=== PATIENT | male | born 1980 ===

== ENCOUNTER 2021-06-20 13:03 | Emergency (ER) | payer BC ==
[2021-06-20 13:13] VITALS: TEMP 98.1
[2021-06-20 13:44] LABS: Basophils # (A) 0.1 k/uL (0-0.2); Basophils % (A) 1 %; Eosinophils # (A) 0.2 k/uL (0-0.7); Eosinophils % (A) 3 %; HCT 44.4 % (39.0-53.0); HGB 15.3 gm/dL (13.0-17.5); Lymphocytes # (A) 2.3 k/uL (1.0-4.8); Lymphocytes % (A) 32 %; MCHC 34.5 g/dL (31.0-37.0); MCV 81.1 fL (80.0-100.0); Mean Platelet Volume 8.4; Monocytes # (A) 0.4 k/uL (0-1.0); Monocytes % (A) 6 %; Neutrophils % (A) 57 %; Platelet Count 194 k/uL (150-450); RBC 5.48 m/uL (4.30-5.90); WBC 7.1 k/uL (3.8-10.6)
[2021-06-20 13:54] LABS: ALT 20 U/L (4-49); AST 32 U/L (17-59); African American GFR (CKD) >90 (>60 ml/min/1.73 sqM); Albumin 4.5 g/dL (3.5-5.0); Alkaline Phosphatase 84 U/L (38-126); Anion Gap 9 mmol/L; Blood Urea Nitrogen 12 mg/dL (9-20); Calcium 9.7 mg/dL (8.4-10.2); Carbon Dioxide 26 mmol/L (22-30); Chloride 104 mmol/L (98-107); Glucose 105 mg/dL (74-99); Magnesium 1.8 mg/dL (1.6-2.3); Non-African American GFR(CKD) >90 (>60 ml/min/1.73 sqM); Sodium 139 mmol/L (137-145); Total Bilirubin 0.6 mg/dL (0.2-1.3); Total Protein 7.6 g/dL (6.3-8.2)
--- NOTE | 2021-06-20 14:01 | XR ---
EXAMINATION TYPE: XR chest 2V DATE OF EXAM: 06/20/2021 COMPARISON: NONE HISTORY: Chest pain. TECHNIQUE: Frontal and lateral views of the chest are obtained. FINDINGS: Overlying EKG leads. There is no focal air space opacity, pleural effusion, or pneumothorax seen. The cardiac silhouette size is within normal limits. The osseous structures are intact. IMPRESSION: No acute process.
--- NOTE | 2021-06-20 14:11 | ED ---
General Adult HPI - General Chief complaint: Arrhythmia/Palpitations Stated complaint: Dizziness Source: patient Mode of arrival: ambulatory Limitations: no limitations - History of Present Illness Initial comments: Patient is a 41-year-old male, previously healthy presents emergency Department with reported dizziness. 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 States that he was working, went to the bathroom and had a bowel movement. When he went to lean forward to wipe he states that he felt as if the ground was moving beneath him. He became diaphoretic. He was evaluated by Dr. Gutiérrez. They completed an EKG which demonstrated some T-wave inversions. Dr. Gutiérrez did recommend that he come in to the emergency room for cardiac workup which the patient agreed to. He arrives and states that he does feel somewhat improved. Feels as if he can't walk a straight line. Denies room spinning sensation. No syncope. Denies any chest pain or shortness of breath. No previous cardiac history. Denies any lower extremity swelling. No ripping or tearing sensation to his back. No abdominal pain. No palpitations. Denies fevers, chills or cough. No hearing changes. No other alleviating, precipitating or modifying factors - Related Data Home Medications Medication Instructions Recorded Confirmed Loratadine 10 mg PO DAILY PRN 06/20/21 06/20/21 Allergies Allergy/AdvReac Type Severity Reaction Status Date / Time No Known Allergies Allergy Verified 06/20/21 16:19 Review of Systems ROS Statement: Those systems with pertinent positive or pertinent negative responses have been documented in the HPI. ROS Other: All systems not noted in ROS Statement are negative. Past Medical History Past Medical History: No Reported History History of Any Multi-Drug Resistant Organisms: None Reported Past Surgical History: No Surgical Hx Reported Past Psychological History: No Psychological Hx Reported Smoking Status: Never smoker Past Alcohol Use History: Occasional Past Drug Use History: Marijuana General Exam Limitations: no limitations Course Vital Signs 06/20/21 06/20/21 06/20/21 13:10 14:12 15:00 Temperature 98.1 F Pulse Rate 65 67 66 Respiratory 20 16 18 Rate Blood Pressure 132/84 128/81 128/80 O2 Sat by Pulse 99 99 99 Oximetry 06/20/21 06/20/21 16:36 17:54 Temperature 98.1 F Pulse Rate 64 68 Respiratory 17 17 Rate Blood Pressure 124/77 124/89 O2 Sat by Pulse 97 99 Oximetry EKG Findings - EKG Comments: EKG Findings:: EKG demonstrates normal sinus rhythm with a ventricular rate of 68. Irritable 166. QRS 102. QTC of 421. Inverted T-wave in leads 3, aVF, V2, V4 and V5. No acute ST segment elevations Medical Decision Making - Medical Decision Making Upon arrival the patient is placed into room 8. A thorough history and physical exam is performed. Patient was on continuous pulse ox and cardiac monitoring. 12-lead EKG was performed. Patient reports to dizziness sensation and therefore he is given a dose of meclizine. Laboratory studies were conducted. D-dimer high at 0.6. Troponin is negative. Did recommend CT of the patient's brain as well as CT of the chest her elevated d-dimer. CT brain demonstrates no acute cranial process at this time. CT of the chest demonstrates no evidence of pulmonary embolism. The patient is reevaluated. Able to get up and ambulate down the hallway without any difficulty. Reports 2 resolution of his symptoms at this time. I did discuss the diagnosis, differential and treatment options. Patient states that he rather go home at this time. Inform the patient and he needs to [facility] for further cardiac testing to include a stress test and echo. Recommended further workup if symptoms return. Any new or worsening symptoms he needs to come back to the emergency department. Patient understood this and agreed. Patient discharged home in stable condition - Lab Data Result diagrams: 06/20/21 13:21 06/20/21 13:21 Lab Results 06/20/21 06/20/21 06/20/21 Range/Units 13:21 13:21 13:21 WBC 7.1 (3.8-10.6) k/uL RBC 5.48 (4.30-5.90) m/uL Hgb 15.3 (13.0-17.5) gm/dL Hct 44.4 (39.0-53.0) % MCV 81.1 (80.0-100.0) fL MCH 28.0 (25.0-35.0) pg MCHC 34.5 (31.0-37.0) g/dL RDW 13.0 (11.5-15.5) % Plt Count 194 (150-450) k/uL MPV 8.4 Neutrophils % 57 % Lymphocytes % 32 % Monocytes % 6 % Eosinophils % 3 % Basophils % 1 % Neutrophils # 4.0 (1.3-7.7) k/uL Lymphocytes # 2.3 (1.0-4.8) k/uL Monocytes # 0.4 (0-1.0) k/uL Eosinophils # 0.2 (0-0.7) k/uL Basophils # 0.1 (0-0.2) k/uL PT 10.4 (9.0-12.0) sec INR 1.0 (<1.2) APTT 23.9 (22.0-30.0) sec D-Dimer 0.60 H (<0.60) mg/L FEU Sodium 139 (137-145) mmol/L Potassium 4.0 (3.5-5.1) mmol/L Chloride 104 (98-107) mmol/L Carbon Dioxide 26 (22-30) mmol/L Anion Gap 9 mmol/L BUN 12 (9-20) mg/dL Creatinine 1.01 (0.66-1.25) mg/dL Est GFR (CKD-EPI)AfAm >90 (>60 ml/min/1.73 sqM) Est GFR (CKD-EPI)NonAf >90 (>60 ml/min/1.73 sqM) Glucose 105 H (74-99) mg/dL Calcium 9.7 (8.4-10.2) mg/dL Magnesium 1.8 (1.6-2.3) mg/dL Total Bilirubin 0.6 (0.2-1.3) mg/dL AST 32 (17-59) U/L ALT 20 (4-49) U/L Alkaline Phosphatase 84 (38-126) U/L Troponin I (0.000-0.034) ng/mL Total Protein 7.6 (6.3-8.2) g/dL Albumin 4.5 (3.5-5.0) g/dL 06/20/21 Range/Units 13:21 WBC (3.8-10.6) k/uL RBC (4.30-5.90) m/uL Hgb (13.0-17.5) gm/dL Hct (39.0-53.0) % MCV (80.0-100.0) fL MCH (25.0-35.0) pg MCHC (31.0-37.0) g/dL RDW (11.5-15.5) % Plt Count (150-450) k/uL MPV Neutrophils % % Lymphocytes % % Monocytes % % Eosinophils % % Basophils % % Neutrophils # (1.3-7.7) k/uL Lymphocytes # (1.0-4.8) k/uL Monocytes # (0-1.0) k/uL Eosinophils # (0-0.7) k/uL Basophils # (0-0.2) k/uL PT (9.0-12.0) sec INR (<1.2) APTT (22.0-30.0) sec D-Dimer (<0.60) mg/L FEU Sodium (137-145) mmol/L Potassium (3.5-5.1) mmol/L Chloride (98-107) mmol/L Carbon Dioxide (22-30) mmol/L Anion Gap mmol/L BUN (9-20) mg/dL Creatinine (0.66-1.25) mg/dL Est GFR (CKD-EPI)AfAm (>60 ml/min/1.73 sqM) Est GFR (CKD-EPI)NonAf (>60 ml/min/1.73 sqM) Glucose (74-99) mg/dL Calcium (8.4-10.2) mg/dL Magnesium (1.6-2.3) mg/dL Total Bilirubin (0.2-1.3) mg/dL AST (17-59) U/L ALT (4-49) U/L Alkaline Phosphatase (38-126) U/L Troponin I <0.012 (0.000-0.034) ng/mL Total Protein (6.3-8.2) g/dL Albumin (3.5-5.0) g/dL Disposition Clinical Impression: Ataxia, Abnormal EKG Disposition: HOME SELF-CARE Condition: Stable Instructions (If sedation given, give patient instructions): Dizziness (ED) Additional Instructions: Please follow-up with Dr. Gutiérrez in regards to your symptoms. You need an Echo and a stress test. Return to the emergency room for any new or worsening symptoms. Is patient prescribed a controlled substance at d/c from ED?: No Referrals: Mu Peralta MD [Primary Care Provider] - 1-2 days Man Gutiérrez MD [STAFF PHYSICIAN] - 1-2 days Time of Disposition: 17:42
[2021-06-20 14:13] LABS: Partial Thromboplastin Time 23.9 sec (22.0-30.0); Prothrombin Time 10.4 sec (9.0-12.0)
[2021-06-20] MEDS ORDERED: MECLIZINE 12.5 MG TAB PO STA (14:41)
--- NOTE | 2021-06-20 15:59 | CT ---
EXAMINATION TYPE: CT brain wo con DATE OF EXAM: 06/20/2021 COMPARISON: None HISTORY: Dizziness and weakness CT DLP: 2080.[address] of the brain was performed. The ventricles, basal cisterns and sulci overlying the cerebral convexities demonstrate a normal appe arance. There is no evidence for intracranial hemorrhage or sulcal effacement. No mass effects are seen. Osseous calvarium is intact. If symptoms persist consider MRI as clinically warranted. IMPRESSION: 1. No acute intracranial process is seen at this time.
--- NOTE | 2021-06-20 16:07 | CT ---
EXAMINATION TYPE: CT chest angio for PE DATE OF EXAM: 06/20/2021 COMPARISON: Chest x-ray same date HISTORY: Dizziness and weakness, elevated d-dimer CT DLP: 2080.2 mGycm Automated exposure control for dose reduction was used. CONTRAST: CT Chest for pulmonary embolism performed with with IV Contrast, patient injected with 100 mL of Isov ue 370. Dimensional reconstructions performed and unaltered workstation. FINDINGS: LUNGS: The lungs are grossly clear, there is no concerning parenchymal mass or nodule identified. T here is no pleural effusion or pneumothorax seen. The tracheobronchial tree is patent. MEDIASTINUM: There is satisfactory enhancement of the pulmonary artery and its branches, there is no CT evidence for pulmonary embolism. There are no greater than 1 cm hilar or mediastinal lymph nodes. No pericardial effusion is seen. AORTA: No additional significant abnormality is seen. OTHER: No additional significant abnormality is seen. IMPRESSION: No evident pulmonary embolism.
[2021-06-20 16:37] VITALS: RESP 17
[2021-06-20 17:55] VITALS: BP 124/89; PULSE 68
== END 2021-06-20 17:55 | disposition home or self-care (01) ==
LOC: EC 13:03
DX: R27.0 Ataxia, unspecified (principal); R94.31 Abnormal electrocardiogram [ECG] [EKG]; R42 Dizziness and giddiness; F12.90 Cannabis use, unspecified, uncomplicated
CPT/HCPCS: 36415; 93005; 85379; 80053; 83735; 84484; 85025; 85610; 85730; 71046; 70450; 71275; 99285; Q9967